=== PATIENT | female | born 1945 | race Caucasian/White ===

== ENCOUNTER 2017-11-05 20:43 | Emergency (ER) | payer MEDICARE ==
[~2017-11-05] VITALS: Ht 157.5 cm; Wt 77.3 kg
[~2017-11-05 20:43] MED LIST: CEPHALEXIN500 MG OR; CLINDAMYCIN300 M1 PO; KEFLEX500 MG OR; LORTAB 5 OR; NO HOME MEDS; NORCO1 TA1 PO; PROAIR HFA IN
[2017-11-05] MEDS ORDERED: NAPROSYN500 MG PO (21:33)
[2017-11-05 21:40] VITALS: BP 132/75
== END 2017-11-05 21:40 | disposition home or self-care (01) ==
LOC: ED 20:43
DX: S83.92XA Sprain of unspecified site of left knee, initial encounter (principal)

== ENCOUNTER 2020-04-06 08:48 | Emergency (ER) | payer MEDICARE ==
[~2020-04-06] VITALS: Ht 157.5 cm; Wt 78.0 kg
[~2020-04-06 08:48] MED LIST changes: +NAPROSYN500 MG PO
[2020-04-06 09:44] LABS: HEMATOCRIT 43.3 % (37.0-47.0); HEMOGLOBIN 13.7 g/dl (12.0-16.0); MEAN CELL VOLUME 92.1 fL CALC (80.0-100.0); MEAN CORPUSCULAR HGB 29.1 pG CALC (26.0-32.0); MEAN CORPUSCULAR HGB CONC 31.6 g/dL CAL (32.0-36.0); NEUT# 3.32 thou/uL (2.00-7.15); RED BLOOD COUNT 4.7 mill/uL (4.20-5.60); RED CELL DISTRI WIDTH 13.5 % (11.5-15.5)
[2020-04-06 09:57] LABS: ANION GAP 13 (6-22 (CALC)); BUN 18 mg/dL (8-23); BUN/CREATININE RATIO 16 (12-20 (CALC)); CARBON DIOXIDE 26 mmol/l (22-30); CHLORIDE 105 mmol/l (95-108); CREATININE 1.1 mg/dL (0.5-1.0); GFR 49 ML/MIN (>=60 (CALC)); GFR FOR AFR.AMER. 59 ML/MIN (>=60 (CALC)); POTASSIUM 4.5 mmol/l (3.5-5.1); SODIUM 140 mmol/l (137-146)
[2020-04-06 10:42] VITALS: BP 118/76
== END 2020-04-06 10:42 | disposition home or self-care (01) ==
LOC: ED 08:48
PROVIDERS: Family Medicine
DX: M25.511 Pain in right shoulder (principal); R94.31 Abnormal electrocardiogram [ECG] [EKG]

== ENCOUNTER 2022-08-25 21:56 | Observation (INO) | payer MEDICARE ==
[~2022-08-25] VITALS: Ht 157.5 cm; Wt 76.0 kg
--- NOTE | 2022-08-25 22:36 | NUR ---
PT BROUGHT IN VIA EMS TO ROOM 6 FOR TRIAGE AND TREATMENT
[2022-08-25 22:48] LABS: BASO% 0.2 % (0-3); EOS% 0.1 % (0-8); HEMOGLOBIN 13.2 g/dl (12.0-16.0); IMMATURE GRANULOCYTES 0.1 % (0.0-5.0); LYMPH% 13.7 % (15-41); MEAN CELL VOLUME 90.1 fL CALC (80.0-100.0); MEAN CORPUSCULAR HGB 28.3 pG CALC (26.0-32.0); MEAN CORPUSCULAR HGB CONC 31.4 g/dL CAL (32.0-36.0); MONO% 5.3 % (2-13); NEUT# 6.6 thou/uL (2.00-7.15); NEUT% 80.6 % (42-76); RED BLOOD COUNT 4.66 mill/uL (4.20-5.60); RED CELL DISTRI WIDTH 14.1 % (11.5-15.5)
[2022-08-25 22:58] LABS: ALBUMIN 4.7 g/dL (3.2-5.0); BILIRUBIN, TOTAL 0.4 mg/dL (0.02-1.3); CREATININE 1.5 mg/dL (0.5-1.0); POTASSIUM 4.1 mmol/l (3.5-5.1); TOTAL PROTEIN 8.4 g/dL (6.3-8.2)
[2022-08-26 00:49] LABS: URINE BILIRUBIN - DIPSTICK NEGATIVE (NEGATIVE); URINE BLOOD DIPSTICK LARGE (NEGATIVE); URINE COLOR YELLOW; URINE GLUCOSE - DIPSTICK NEGATIVE (NEGATIVE); URINE KETONE 15 mg/dL (NEGATIVE); URINE PROTEIN - DIPSTICK 30 mg/dL (NEG-TRACE); URINE SPECIFIC GRAVITY 1.025; URINE UROBILINOGEN - DIPSTICK 0.2 E.U./dL (0.2)
[2022-08-26 00:50] LABS: URINE NITRITE - DIPSTICK NEGATIVE (Negative)
[2022-08-26 00:51] LABS: URINE LEUK ESTERASE NEGATIVE (NEGATIVE)
[2022-08-26 00:52] LABS: URINE EPITHELIAL CELLS FEW EPI/hpf (0-FEW); URINE RBC >100 RBC/hpf (0-5)
[2022-08-26 00:53] LABS: URINE BACTERIA MODERATE hpf; URINE CALCIUM OXALATE CRYSTALS MODERATE lpf
--- NOTE | 2022-08-26 02:48 | NUR ---
PT RESTING COMFORTABLY. WAITING FOR THE RESULTS OF THE CT SCAN
--- NOTE | 2022-08-26 04:16 | NUR ---
PT UP TO BR WITH ASSIST. NAD. AWAITING FOR RESULTS OF CT.
--- NOTE | 2022-08-26 05:50 | NUR ---
REPORT GIVEN TO MARIANNE ON MS. PT PLACED IN WC AND TAKEN UPSTAIRS
[2022-08-26 06:22] VITALS: BP 146/70
--- NOTE | 2022-08-26 06:30 | NUR ---
PT CAME UP VIA WHEELCHAIR @0605. PT AMBULATED FROM WHEELCHAIR TO RESTROOM, URINE WAS BLOODY BUT PT DENIES ANY PAIN WHEN URINATING. PY AMBULATED TO BED, GAIT STEADY. PT IS A/OX4, DENIES ANY PAIN AT THIS TIME. ROOM AIR, SKIN INTACT, NO REMARKABLE FINDINGS DURING ASSESSMENT. PT DOES HAVE TENDERNESS IN LUQ/LLQ. IV SITE APPEARS HEALTHY AND INTACT IN LAC. FLUIDS RUNNING FROM ER. EDUCATED PT ON PLAN OF CARE AT THIS TIME AND DIET. SAFETY PRECAUTIONS IN PLACE AND CALL LIGHT WITHIN REACH.
--- NOTE | 2022-08-26 08:00 | NUR ---
PATIENT WAS INFORMED OF PROCEDURE HAPPENING AROUND 1100AM TODAY DUE TO KIDNEY STONE. PATIENT HAS BEEN NPO SINCE MIDNIGHT. PATIENT WAS HELPED INTO A GOWN. NEW IV FLUIDS WITH TUBING GOING. WILL CONTINUE TO MONITOR.
[2022-08-26 08:07] VITALS: BP 134/57
--- NOTE | 2022-08-26 10:20 | NUR ---
ROUNDED WITH DR DIXON RIGHT AFTER OR NURSE CAME FOR PATIENT TO TAKE DOWN FOR PROCEDURE FOR KIDNEY STONE. PATIENT STATED UNDERSTANDING.
--- NOTE | 2022-08-26 13:18 | NUR ---
PATIENT RETURNED FROM PROCEDURE. PATIENT AWAKE REPORTS NO PAIN. SPOUSE AT BEDSIDE. PATIENT ASKING ABOUT POSSIBLE DISCHARGE. WILL INFORM DR DIXON OF PATIENT BACK ON UNIT. VITAL WNL IV FLUIDS. WILL CONTINUE TO MONITOR.
[2022-08-26 13:26] VITALS: BP 123/57
[2022-08-26 13:52] VITALS: BP 133/46
--- NOTE | 2022-08-26 14:43 | NUR ---
PATIENT HELPED TO THE RESTROOM WITH MIN ASSISTANCE. PATIENT ABLE TO SELF AMBULATE. PATIENT REPORTS MIN PAIN WHEN URINATING. PATIENT BACK IN BED. WILL CONTINUE TO MONITOR
--- NOTE | 2022-08-26 17:15 | NUR ---
Discharge instructions given. Patient verbalizes understanding of same. Discharged in stable condition via Wheelchair to Home with spouse. All belongings sent with pt. Provided phone number to urology for stent remover 7-10 days.
== END 2022-08-26 17:16 | disposition home or self-care (01) ==
LOC: ED 21:56 → ED-I 08-26 05:20 → ED 08-26 05:38 → MS2 08-26 05:39
PROVIDERS: Emergency Medicine; ADMIT Internal Medicine; ATTEND Internal Medicine
PROC: 0TC78ZZ Extirpation of Matter from Left Ureter, Via Natural or Artificial Opening Endoscopic (ICD-10-PCS; principal; 2022-08-26)
PROC: 0T778DZ Dilation of Left Ureter with Intraluminal Device, Via Natural or Artificial Opening Endoscopic (ICD-10-PCS; 2022-08-26)
PROC: BT1F1ZZ Fluoroscopy of Left Kidney, Ureter and Bladder using Low Osmolar Contrast (ICD-10-PCS; 2022-08-26)
DX: N13.2 Hydronephrosis with renal and ureteral calculous obstruction (principal); N17.9 Acute kidney failure, unspecified; K80.20 Calculus of gallbladder without cholecystitis without obstruction; N26.1 Atrophy of kidney (terminal); Z85.038 Personal history of other malignant neoplasm of large intestine; Z90.49 Acquired absence of other specified parts of digestive tract; Z20.822 Contact with and (suspected) exposure to COVID-19
CPT/HCPCS: J0131; J1100; Q9966

== ENCOUNTER 2022-09-25 06:19 | Day surgery (SDC) | payer MEDICARE ==
[~2022-09-25] VITALS: Ht 157.5 cm; Wt 72.6 kg
[2022-09-25 08:46] VITALS: BP 136/74
== END 2022-09-25 08:48 | disposition home or self-care (01) ==
LOC: ENDO 06:19 → ORM 07:30 → ENDO 08:48 → ORM 11:15
PROVIDERS: ATTEND Internal Medicine Gastroenterology
PROC: 0DBE8ZX Excision of Large Intestine, Via Natural or Artificial Opening Endoscopic, Diagnostic (ICD-10-PCS; principal; 2022-09-25)
PROC: 0DB98ZX Excision of Duodenum, Via Natural or Artificial Opening Endoscopic, Diagnostic (ICD-10-PCS; 2022-09-25)
PROC: 0DB78ZX Excision of Stomach, Pylorus, Via Natural or Artificial Opening Endoscopic, Diagnostic (ICD-10-PCS; 2022-09-25)
PROC: 0DB68ZX Excision of Stomach, Via Natural or Artificial Opening Endoscopic, Diagnostic (ICD-10-PCS; 2022-09-25)
PROC: 0DB48ZX Excision of Esophagogastric Junction, Via Natural or Artificial Opening Endoscopic, Diagnostic (ICD-10-PCS; 2022-09-25)
DX: K57.30 Diverticulosis of large intestine without perforation or abscess without bleeding (principal); K64.8 Other hemorrhoids; K21.00 Gastro-esophageal reflux disease with esophagitis, without bleeding; K29.70 Gastritis, unspecified, without bleeding; K29.80 Duodenitis without bleeding; K31.7 Polyp of stomach and duodenum; N18.2 Chronic kidney disease, stage 2 (mild); E78.5 Hyperlipidemia, unspecified; Z85.038 Personal history of other malignant neoplasm of large intestine; Z80.0 Family history of malignant neoplasm of digestive organs